=== PATIENT | male | born 1950 ===

== ENCOUNTER 2016-05-19 17:28 | Emergency (ER) | payer OTHER ==
[2016-05-19 18:47] VITALS: BP 138/81
--- NOTE | 2016-05-19 21:55 | UC ---
johana Loredo Timothy, scribed for Judy Blas MD on 05/19/16 at 1915 . Eye Complaint HPI - HPI Summary HPI Summary: Nomi Mcdonough is a 65 yo male presenting to [facility] with bilateral eye redness, 5/ 10 pain, irritation, and drainage for the past 2 days, notably worse today. He states his right eye is worse than his left. He was exposed to his grandchildren , who have pink eye. He also is complaining of URI Sx including sore throat, and nasal discharge for the past 4-5 days, as well as neck stiffness 2 days ago. His Hx includes [place] 05/2013, CAD, HTN, arthritis left shoulder, former tobacco user. - History of Current Complaint Chief Complaint: UCEye Stated Complaint: EYE IRRITATION Time Seen by Provider: 05/19/16 19:19 Hx Obtained From: Patient Onset/Duration: Gradual Onset, Lasting Days, Still Present Timing: Constant Severity Initially: Moderate Severity Currently: Moderate Pain Intensity: 5 Pain Scale Used: 0-10 Numeric Location of Injury: Other - no injury. Does not wear contacts. Character: Foreign Body Sensation - "grit" Aggravating Factor(s): Nothing Alleviating Factor(s): Nothing Associated Signs And Symptoms: Positive: Drainage (Purulent). Negative: Vision Impairment Bilateral, Vision Impairment Right, Vision Impairment Left - Risk Factors Penetrating Injury Risk Factor: Negative Acute Glaucoma Risk Factors: Negative - Allergies/Home Medications Allergies/Adverse Reactions: Allergies Allergy/AdvReac Type Severity Reaction Status Date / Time No Known Drug Allergy Allergy Unknown Verified 05/19/16 18:47 Reaction Details ENVIRONMENTAL/SEASONAL Allergy Unknown Uncoded 10/04/14 06:22 HAYFEVER Reaction Details Home Medications: Home Medications Otc Cold/Flu Med* PRN 05/19/16 [History] PMH/Surg Hx/FS Hx/Imm Hx Endocrine History Of: Denies: Diabetes, Thyroid Disease Cardiovascular History Of: Reports: Cardiac Disorders - [place], Hypertension Denies: Pacemaker/ICD Respiratory History Of: Denies: COPD, Asthma GI/ History Of: Denies: Ulcer - Surgical History Surgical History: Yes Surgery Procedure, Year, and Place: CORONARY PTCA WITH STENT PLACEMENT- 02/25 ; Rt KNEE-ACL REPAIR; tonsillectomy at age 6, SHOULDER REPLACEMENT - Family History Known Family History: Positive: Cardiac Disease, Hypertension - Social History Alcohol Use: Occasionally Substance Use Type: None Smoking Status (MU): Former Smoker Type: Cigarettes When Did the Patient Quit Smoking/Using Tobacco: 35 YEARS AGO - Immunization History Most Recent Influenza Vaccination: NONE Most Recent Tetanus Shot: THINKS WITHIN LAST 10 YEARS Most Recent Pneumonia Vaccination: 2011 Review of Systems Constitutional: Negative Skin: Negative Eyes: Drainage, Eye Redness ENT: Sore Throat, Nasal Discharge Respiratory: Negative Cardiovascular: Negative Gastrointestinal: Negative Genitourinary: Negative Motor: Negative Neurovascular: Negative Musculoskeletal: Other: - neck stiffness, now resolved Neurological: Negative Psychological: Negative All Other Systems Reviewed And Are Negative: Yes Physical Exam Triage Information Reviewed: Yes Appearance: No Pain Distress, Well-Nourished, Ill-Appearing Vital Signs: Initial Vital Signs Temp 97.8 F 05/19/16 18:41 Pulse 60 05/19/16 18:41 Resp 16 05/19/16 18:41 BP 138/81 05/19/16 18:41 Pulse Ox 99 05/19/16 18:41 Vital Signs Reviewed: Yes Eyes: Positive: Conjunctiva Inflamed - bilateral, Discharge - copious pus, Other : - visual acuity noted ENT: Positive: Hearing grossly normal, Pharyngeal erythema, TMs normal. Negative: Tonsillar swelling, Tonsillar exudate, Muffled/hoarse voice Neck: Positive: Supple, Nontender, No Lymphadenopathy Respiratory: Positive: Lungs clear, Normal breath sounds, No respiratory distress Cardiovascular: Positive: RRR, No Murmur, Pulses Normal, Brisk Capillary Refill Musculoskeletal: Positive: Strength Intact, ROM Intact Neurological: Positive: Alert, Muscle Tone Normal Psychological Exam: Normal Skin Exam: Normal Eye Complaint Course/Dx - Course Course Of Treatment: Nomi Mcdonough is a 65 yo male presenting to [facility] with injected conjunctivi and copious purulent drainage from bilateral eyes, right worse than left, after exposure to his grandchildren who have pink eye. A culture was taken from the right eye. He will be discharged with sinusitis and bilateral conjunctivitis, with instructions to follow up with Dr. Soares if symptoms do not resolve with Rx, and his PCP by the end of the week to ensure Sx resolution. - Differential Dx/Diagnosis Differential Diagnosis/HQI/PQRI: Conjunctivitis, Periorbital Cellulitis, Orbital Cellulitis, Other - sinusitis, URI Provider Diagnoses: Sinusitis, bilateral conjunctivitis Discharge - Discharge Plan Condition: Stable Disposition: HOME Prescriptions: Amoxicillin/Clavulanate TAB* [Augmentin TAB 875*] 875 mg PO BID #20 tab Tobramycin 0.3% OPHTH.TANVIR* 2 drop BOTH EYES Q4H #1 btl Patient Education Materials: Sinusitis (ED), Conjunctivitis (ED) Referrals: Naren Soares MD [Medical Doctor] - If Needed Cirilo Stanford MD [Primary Care Provider] - 1 Week Additional Instructions: Return to urgent care or the emergency department with any new or recurring symptoms. The documentation as recorded by the johana hankins Timothy accurately reflects the service I personally performed and the decisions made by , Judy Blas MD.
== END 2016-05-19 19:49 | disposition home or self-care (01) ==
LOC: UCEAST 17:28
DX: H10.33 Unspecified acute conjunctivitis, bilateral (principal); J32.9 Chronic sinusitis, unspecified; Z87.891 Personal history of nicotine dependence
CPT/HCPCS: 87070; 87077; 87186; 87205; 99212; G0463